=== PATIENT | male | born 1950 | race Caucasian/White ===

== ENCOUNTER → 2016-03-12 | Outpatient (CLI) | payer MEDICARE, OTHER | LOC: GMAJ 11:15 | PROVIDERS: ATTEND Family Medicine | DX: Z12.5 Encounter for screening for malignant neoplasm of prostate (principal) ==

== ENCOUNTER → 2017-03-13 | Outpatient (CLI) | payer MEDICARE, OTHER | LOC: GMAJ 11:28 | PROVIDERS: ATTEND Family Medicine | DX: Z12.5 Encounter for screening for malignant neoplasm of prostate (principal) ==

== ENCOUNTER → 2017-11-08 | Outpatient (CLI) | payer MEDICARE, OTHER ==
--- NOTE | 2017-11-08 18:34 | US ---
EXAM DESCRIPTION: Abdomen,Complete CLINICAL HISTORY: EPIGASTRIC PAIN COMPARISON: None Available. TECHNIQUE: Complete abdominal ultrasound FINDINGS: Visualized portions of the pancreas are unremarkable. No peripancreatic fluid. Bowel gas obscures some areas. Aorta is prominent in caliber without focal aneurysm. Normal appearance of the inferior vena cava. Liver parenchyma is homogeneous in texture with increased echogenicity consistent with diffuse hepatic steatosis. Hypoechoic area near the gallbladder is thought to be parenchymal sparing rather than a liver lesion. No other evidence of liver mass or intrahepatic bile duct dilatation. No liver surface irregularity. Liver length of 17 cm is within normal limits. Normal appearance of hepatic veins and portal vein. Gallbladder appears normal with no intraluminal stones. No gallbladder wall thickening. Common bile duct is normal in caliber measuring 4.5 mm. The right kidney measures 13.6 cm in length. Normal renal cortical echogenicity. The renal cortical thickness appears normal. No right renal mass or shadowing stone. A few central lucencies may be small parapelvic cysts. Hydronephrosis is thought less likely. Correlate with other studies such as IVP or CT of the kidneys with contrast including delayed images. Spleen is normal in size. No focal splenic lesion. The left kidney measures 12.7 cm in length. Normal renal cortical echogenicity. The renal cortical thickness appears normal. No solid-appearing left renal mass or shadowing stone. Lucencies in the upper central and peripheral left kidney are thought to be parapelvic and cortical cysts rather than hydronephrosis. Correlate with other studies. IMPRESSION: Lucencies in the renal yoko bilaterally thought to be parapelvic cysts. See above. Hyperechoic liver consistent with diffuse hepatic steatosis. Electronically signed by: Juan Perdue MD 11/08/2017 6:33 PM CDT
== END ==
LOC: US 13:42
PROVIDERS: ATTEND Family Medicine
DX: R10.13 Epigastric pain (principal)

== ENCOUNTER → 2018-09-04 | Outpatient (CLI) | payer MEDICARE, OTHER | LOC: GMAJ 10:41 | PROVIDERS: ATTEND Family Medicine | DX: Z12.5 Encounter for screening for malignant neoplasm of prostate (principal); I10 Essential (primary) hypertension; E78.2 Mixed hyperlipidemia ==

== ENCOUNTER 2018-10-16 05:48 | Day surgery (SDC) | payer MEDICARE, OTHER ==
[2018-10-16] MEDS ORDERED: LIDOCAINE 1% 10 ML VIAL INJ ONE (07:00)
[2018-10-16] MEDS ORDERED: PROPOFOL 200 MG/20 ML VIAL IV ONE (07:00)
[2018-10-16] MEDS ORDERED: LACTATED RINGERS 1,000 ML ONE (07:01)
[2018-10-16 09:28] VITALS: O2SAT 100
--- NOTE | 2018-10-16 10:11 | OP ---
DATE OF PROCEDURE: 10/16/18 INDICATION FOR PROCEDURE: History of polyps. PROCEDURE: Colonoscopy. SURGEON: Antonio Galeas MD ANESTHESIA: General. PROCEDURE: Complete informed consented was obtained. The patient brought to the Operating Suite in the lateral position. General anesthesia was induced. Digital rectal exam revealed no masses, no bleeding, no significant external hemorrhoids. The colonoscope was inserted. After withdrawing after the transverse colon to remove a loop, we were then able advance and identify the cecum. Upon careful withdrawal with a well-prepped colon, no polyps were identified. Gas was aspirated. He tolerated the procedure and then awakened and taken to Recovery to be discharged. #[id number] cc: Antonio Bahena MD [facility]
[2018-10-16 13:12] VITALS: BP 118/72; TEMP 96.9
== END 2018-10-16 10:45 | disposition home health service (06) ==
LOC: AMB 05:48
PROVIDERS: ATTEND Surgery
DX: Z12.11 Encounter for screening for malignant neoplasm of colon (principal); I10 Essential (primary) hypertension; E78.00 Pure hypercholesterolemia, unspecified; I65.29 Occlusion and stenosis of unspecified carotid artery; Z86.010 Personal history of colon polyps; Z96.653 Presence of artificial knee joint, bilateral; Z88.8 Allergy status to other drugs, medicaments and biological substances; Z87.891 Personal history of nicotine dependence; Z79.82 Long term (current) use of aspirin; Z79.899 Other long term (current) drug therapy
CPT/HCPCS: 00812; G0105; J3490; J7120

== ENCOUNTER → 2020-01-04 | Outpatient (CLI) | payer MEDICARE, OTHER | LOC: GMAJ 10:27 | PROVIDERS: ATTEND Family Medicine | DX: N40.1 Benign prostatic hyperplasia with lower urinary tract symptoms (principal); E78.2 Mixed hyperlipidemia; I10 Essential (primary) hypertension ==

== ENCOUNTER 2020-03-14 16:41 | Outpatient (CLI) | payer MEDICARE, OTHER | END 2020-03-15 11:55 | disposition home or self-care (01) | LOC: INFRM 16:41 | PROVIDERS: ATTEND Family Medicine | DX: U07.1 COVID-19 (principal); Z23 Encounter for immunization; I10 Essential (primary) hypertension ==